=== PATIENT | female | born 1990 | race African-American/Black ===

== ENCOUNTER 2025-03-22 13:49 | Emergency (ER) | payer SELFPAY ==
[~2025-03-22] VITALS: Ht 160 cm; Wt 91.0 kg
[2025-03-22 14:01] VITALS: TEMP 37.1; O2SAT 98
[2025-03-22] MEDS ORDERED: IBUP-2029 MT (15:26)
[2025-03-22] MEDS ORDERED: LIDO700A30 TP (15:26)
[2025-03-22 15:44] VITALS: BP 140/83; PULSE 64; RESP 16; O2SAT 99
== END 2025-03-22 15:45 | disposition home or self-care (01) ==
LOC: ER 13:50
DX: S20.219A Contusion of unspecified front wall of thorax, initial encounter (principal); Z90.49 Acquired absence of other specified parts of digestive tract; F12.90 Cannabis use, unspecified, uncomplicated
CPT/HCPCS: 71045; 93005; 99283